=== PATIENT | female | born 1975 | race Two or more races ===

== ENCOUNTER 2024-05-01 07:35 | Day surgery (SDC) | payer BC, SELFPAY ==
[2024-04-28 13:29] VITALS: BMI 31.1
[2024-05-01] VITALS (14 sets, daily range): BP systolic 112–172; BP diastolic 58–116; PULSE 66–98; RESP 14–22; TEMP 36.4–37; O2SAT 95–99; BMI 31.2
[2024-05-01] MEDS: SODIUM CHLORIDE 0.9% 100 ML IV (09:10)
[2024-05-01] MEDS: DiphenhydrAMINE INJ 50 MG/ML VIAL 25 MG IV (09:17)
[2024-05-01] MEDS: fentaNYL CIT INJ 50 mCg/ML AMP 2ML (ASD USE ONLY) IV (09:17)
[2024-05-01] MEDS: ONDANSETRON INJ 2 MG/ML INJ 2 ML 4 MG IV (09:32)
[2024-05-01] MEDS: MEPERIDINE INJ 25 MG/ML VIAL (ASD USE ONLY) IV (09:34)
[2024-05-01] MEDS: MIDAZOLAM INJ 1 MG/ML VIAL 2 ML (ASD USE ONLY) 2 MG IV (09:38)
[2024-05-01 09:41] LABS: Misc Send Out* See Sep Rpt
--- NOTE | 2024-05-01 09:49 | SUR.PHASEII ---
0949 patient arrived to recovery, report received from Lulu ALICEA
--- NOTE | 2024-05-01 10:14 | SUR.PHASEII ---
[facility]
--- NOTE | 2024-05-01 10:49 | SUR.PHASEII ---
1049 Patient meets discharge criteria from recovery, awake and alert, breathing unlabored, vital signs stable, denies pain, drinking water; denies nausea, patient able to dress herself into her clothing, discharge instructions given to patient and patients son, son signed discharge instructions, patient given all her belongings prior to discharge, transported via wheelchair, left in a private vehicle.
== END 2024-05-01 10:49 | disposition home or self-care (01) ==
PROVIDERS: PCP Internal Medicine; Referring Provider Specialist; Visit Provider Specialist
PROC: 0DBE8ZX Excision of Large Intestine, Via Natural or Artificial Opening Endoscopic, Diagnostic (ICD-10-PCS; CPT 45380; principal; 2024-05-01 13:15)
PROC: (CPT 43239; 2024-05-01 13:15)
DX: K64.4 Residual hemorrhoidal skin tags (principal); D62 Acute posthemorrhagic anemia; D64.9 Anemia, unspecified; E55.9 Vitamin D deficiency, unspecified; K57.30 Diverticulosis of large intestine without perforation or abscess without bleeding
CPT/HCPCS: 45378; 81025; 87081; 87205; A4649; J1200; J2175; J2250; J2405; J3010; J7050

== ENCOUNTER → 2024-06-23 | Outpatient (CLI) | payer BC, SELFPAY ==
[2024-06-23 16:14] LABS: Collection Type, Urine Clean Catch
[2024-06-23 16:28] LABS: Basophils % (Auto) 1 % (0-2.5); Eosinophils # (Auto) 0.2 Thou/mm3 (0.0-0.5); Eosinophils % (Auto) 4 % (0-10); Hemoglobin 10.2 g/dL (12.0-16.0); Immature Granulocytes % (Auto) 0 % (0-0); Immature Granulocytes Auto 0.02 Thou/mm3 (0.00-0.00); Lymphocytes # (Auto) 1.7 Thou/mm3 (1.0-4.8); Lymphocytes % (Auto) 29 % (10-50); Mean Corpuscular HGB Conc 35.2 g/dl (31.0-37.0); Mean Corpuscular Hemoglobin 24.6 pg (25.0-35.0); Mean Corpuscular Volume 70 fL (80-100); Monocytes # (Auto) 0.4 Thou/mm3 (0.0-0.8); Monocytes % (Auto) 6 % (0-12); Neutrophils # (Auto) 3.6 Thou/mm3 (1.8-7.7); Neutrophils % (Auto) 61 % (37-80); Nucleated Red Blood Cell % 0 /100 WBC (0); Platelet Count 221 Thou/mm3 (140-440); RDW Standard Deviation 43.7 fL (36.4-46.3); Red Blood Count 4.14 Miln/mm3 (4.00-5.20)
[2024-06-23 16:37] LABS: Amorphous Crystals,Urine Present (Absent); Bilirubin,Urine Negative (Negative); Blood,Urine Negative (Negative); Clarity,Urine Hazy (Clear/Hazy); Color,Urine Lt-Yellow (Lt Yel-Yel); Culture Indicated,Urine Not Indicated; Glucose, Urine Negative (Negative); Ketones,Urine Negative (Negative); Leukocyte Esterase,Urine Negative (Negative); Nitrite,Urine Negative (Negative); PH,Urine 6.5 (5.0-7.0); Protein,Urine Trace (Neg - Trace); RBC,Urine 2 /hpf (0-3); Specific Gravity,Urine 1.027 (1.001-1.035); Squamous Epithelial Cell,Urine 2 /hpf (0-5); Urobilinogen,Urine Negative mg/dL (0.0-1.0); WBC,Urine 2 /hpf (0-5)
[2024-06-23 17:03] LABS: Alanine Aminotransferase 14 U/L (10-49); Aspartate Amino Transferase 16 U/L (0-34); C-Reactive Protein < 0.5 mg/dL (0.0-0.9); Creatinine (Component) 0.7 mg/dL (0.6-1.3); Free T3 3.4 pg/mL (2.3-4.2); Free T4 (Free Thyroxine) 0.96 ng/dL (0.89-1.76); Thyroid Stimulating Hormone 8.53 uIU/mL (0.55-4.78); eGFR > 60 See Note
[2024-06-23 17:53] LABS: Sed Rate (ESR) 3 mm/hr (0-20)
[2024-06-23 20:50] LABS: RA Screen Negative (Negative)
[2024-07-02 15:36] LABS: Cardiolipin Ab (IgA) <2.0 APL-U/mL; Cardiolipin Ab (IgG) <2.0 GPL-U/mL; EBV VCA Ab (IgG) >750.00 U/mL; EBV VCA Ab (IgM) <36.00 U/mL; Sjogren's antibody (SS-A) <1.0 NEG AI (<1.0 NEGATIVE); Sm Antibody <1.0 NEG AI (<1.0 NEGATIVE)
[2024-07-03 06:58] LABS: PTT-LA Screen 38 seconds (< OR = 40); dRVVT Screen 27 seconds (< OR = 45)
[2024-07-03 07:11] LABS: ANA Screen, IFA NEGATIVE (NEGATIVE); Complement Component C3* 138 mg/dL (83-193); Complement Component C4c* 20 mg/dL (15-57); DNA (ds) Antibody* <1 IU/mL; Sjogren's Antibody (SS-B) <1.0 NEG AI (<1.0 NEGATIVE); Thyroglobulin Antibodies* 6 IU/mL (< OR = 1)
[2024-07-03 07:12] LABS: B2-Glycoprotein I Ab IgA <2.0 U/mL; B2-Glycoprotein I Ab IgG <2.0 U/mL; B2-Glycoprotein I Ab IgM <2.0 U/mL; CCP Antibody (IgG)* <16 Units; Cardiolipin Ab (IgM) <2.0 MPL-U/mL; EBV Ab Interpretation PAST; Sm/RNP Antibody <1.0 NEG AI (<1.0 NEGATIVE); Thyroid Peroxidase Antibodies* 73 IU/mL (<9)
== END | disposition home or self-care (01) ==
LOC: COPL 15:46
PROVIDERS: PCP Internal Medicine; Referring Provider Internal Medicine Rheumatology; Visit Provider Internal Medicine Rheumatology
DX: R76.0 Raised antibody titer (principal)
CPT/HCPCS: 36415; 81001; 82565; 84439; 84443; 84450; 84460; 84481; 85025; 85613; 85652; 85730; 86038; 86140; 86146; 86147; 86160; 86200; 86225; 86235; 86376; 86430; 86664; 86665; 86800

== ENCOUNTER 2024-10-10 06:55 | Day surgery (SDC) | payer BC, SELFPAY ==
--- NOTE | 2024-10-08 20:41 | ESHP_ITS ---
RE: ETHAN GEORGES : 1975 DATE OF ADMISSION: 10/10/2024 DATE OF SURGERY: 10/10/2024 HISTORY OF PRESENT ILLNESS: This is a 48-year-old 6, para 5-0-1-5 with a benign-appearing left adnexal mass and a normal CA-125 who presents for removal of left ovarian cyst. ALLERGIES: NO KNOWN DRUG ALLERGIES. MEDICATIONS: None. PAST MEDICAL HISTORY: Gallstones, right oophorectomy at age 19 years for benign cyst, iron deficiency anemia, subclinical hypothyroidism, obesity, urinary stress incontinence, chronic back pain, right Smith palsy, preeclampsia, carpal tunnel syndrome, latent tuberculosis infection. SOCIAL HISTORY: She denies any alcohol, drug use or smoking. FAMILY HISTORY: Denies. OBSTETRIC HISTORY: Five previous full-term normal vaginal deliveries. PAST SURGICAL HISTORY: Laparoscopic cholecystectomy and a laparoscopic right oophorectomy. REVIEW OF SYSTEMS: She denies any chest pain, palpitations, cough, fever, shortness of breath or lower extremity pain. She denies any headache, change in vision or right upper quadrant pain. PHYSICAL EXAMINATION: VITAL SIGNS: Blood pressure is 138/74, heart rate 88, respirations 18, temperature 98.6. HEENT: Oropharynx and sclerae are clear. LUNGS: Clear to auscultation bilaterally. HEART: Regular rate and rhythm. ABDOMEN: Old trocar scars noted. Nontender. EXTREMITIES: Nontender. SKIN: No gross rashes or lesions. NEUROLOGIC: No focal deficits. ASSESSMENT AND PLAN: Left adnexal mass. PLAN: Diagnostic laparoscopy, left oophorectomy, possible laparotomy. Informed consent was obtained. The patient was made aware of the risks, complications, alternatives and benefits of the proposed procedure and she agrees. She is aware of the risk of injury to bowel or bladder, uterus, ureters, adjacent organs, pulmonary embolism, deep vein thrombosis, injury to the vessels, the abdominal wall, hematoma, abscess, wound infection, wound dehiscence, pelvic infection, reoperation to repair injury to internal organs, anesthesia complications, the possibility that a laparotomy needs to be performed to complete the procedure or control bleeding and the possibility that the procedure is not able to be completed due to severe adhesions or technical difficulties. DT: 18:24:25 TT: 20:39:00 Ref: [id number] - TID: [id number]
[2024-10-09 08:34] VITALS: BMI 30.9
[2024-10-09 09:07] LABS: Basophils # (Auto) 0.0 Thou/mm3 (0.0-0.2); Basophils % (Auto) 0 % (0-2.5); Eosinophils # (Auto) 0.1 Thou/mm3 (0.0-0.5); Eosinophils % (Auto) 3 % (0-10); Hematocrit 29.1 % (36.0-46.0); Hemoglobin 10.0 g/dL (12.0-16.0); Immature Granulocytes Auto 0.01 Thou/mm3 (0.00-0.00); Lymphocytes # (Auto) 1.2 Thou/mm3 (1.0-4.8); Lymphocytes % (Auto) 26 % (10-50); Mean Corpuscular HGB Conc 34.4 g/dl (31.0-37.0); Mean Corpuscular Hemoglobin 22.7 pg (25.0-35.0); Mean Corpuscular Volume 66 fL (80-100); Monocytes # (Auto) 0.2 Thou/mm3 (0.0-0.8); Monocytes % (Auto) 5 % (0-12); Neutrophils # (Auto) 3.2 Thou/mm3 (1.8-7.7); Neutrophils % (Auto) 66 % (37-80); Nucleated Red Blood Cell # 0.00 Thou/mm3 (0.00-0.00); Nucleated Red Blood Cell % 0 /100 WBC (0); Platelet Count 227 Thou/mm3 (140-440); RDW Standard Deviation 43.0 fL (36.4-46.3); Red Blood Count 4.41 Miln/mm3 (4.00-5.20); White Blood Count 4.8 Thou/mm3 (3.6-11.0)
[2024-10-09 09:25] LABS: Alanine Aminotransferase 15 U/L (10-49); Albumin, Serum 4.5 gm/dL (3.5-5.0); Albumin/Globulin Ratio 1.9 (1.2-2.2); Alkaline Phosphatase 53 U/L (46-116); Anion Gap 9 (7-16); Aspartate Amino Transferase 15 U/L (0-34); BUN/Creatinine Ratio 17 Ratio (12-20); Beta HCG,Quantitative 1 mIU/mL (<5.0); Bilirubin,Total 0.8 mg/dL (0.3-1.2); Blood Urea Nitrogen 10 mg/dL (9-23); Calcium 9.4 mg/dL (8.3-10.6); Calcium (Corrected) 9.4 mg/dL (8.5-10.1); Carbon Dioxide 25.4 mMol/L (20.0-31.0); Chloride 106 mMol/L (98-107); Creatinine (Component) 0.6 mg/dL (0.6-1.3); Estimated Creatinine Clearance 111.1 mL/min (>60); Globulin 2.4 gm/dL (2.3-3.5); Glucose 98 mg/dL (74-106); Osmolality,Calculated 278 (275-295); Potassium 3.9 mMol/L (3.4-5.1); Sodium 140 mMol/L (136-145); Total Protein 6.9 gm/dL (5.7-8.2); eGFR > 60 See Note
[2024-10-09 09:32] LABS: INR 1.0 (0.9-1.3); Partial Thromboplastin Time 27.9 Seconds (22.0-36.0); Prothrombin Time 10.9 Seconds (9.0-12.2)
[2024-10-09 16:49] LABS: Path Review Blood Smear Sent to Pathologist
[2024-10-10] VITALS (7 sets, daily range): BP systolic 126–144; BP diastolic 72–87; PULSE 66–83; RESP 13–20; TEMP 36.2–36.9; O2SAT 95–100; BMI 31.5
[2024-10-10] MEDS: RINGERS LACTATED 1000 ML 1,000 ML 30 ML IV (08:44)
--- NOTE | 2024-10-10 10:03 | SUR.PHASEI ---
1003 Patient arrived to recovery resting comfortably in [facility], on 8L via oxy mask with an oral airway in place, breathing unlabored, vital signs stable, dressing intact to abdomen; dermabond and to vaginal area; peripad, no bleeding noted, report received from Dr. Simms and Papito ALICEA
[2024-10-10] MEDS: ONDANSETRON INJ 2 MG/ML INJ 2 ML 4 MG IVP (10:40)
--- NOTE | 2024-10-10 11:00 | SUR.PHASEII ---
1100 Patient meets discharge criteria from recovery, awake and alert, breathing unlabored, vital signs stable, denies pain, dressing intact; no bleeding noted, eating ice chips with nausea at a tolerable level, patient assisted with dressing into her clothing by her friend, discharge instructions given to patient and patients friend, friend signed discharge instructions. Patient given all her belongings prior to discharge, transported via wheelchair and left in a private vehicle.
--- NOTE | 2024-10-10 14:26 | ESOP_ITS ---
RE: ETHAN GEORGES : 1975 DATE OF OPERATION: 10/10/2024 PREOPERATIVE DIAGNOSIS: Left ovarian cyst. POSTOPERATIVE DIAGNOSIS: Left ovarian cyst. PROCEDURE PERFORMED: Diagnostic Laparoscopy and left salpingo-oophorectomy. SURGEON: Anmol Chatterjee DO CATTLE STICKER: HILARIO Hastings ANESTHESIA: General. ANESTHESIOLOGIST: Dr. Simms. ESTIMATED BLOOD LOSS: 100 mL. COMPLICATIONS: None. COUNTS: Correct. PATHOLOGY: Left ovary, fallopian tube and left ovarian cyst. FINDINGS: An 11 x 9 x 8.5 cm left ovarian cystic mass containing serous fluid. There was no abnormality of the uterus. The right ovary was not visualized or right fallopian tube. There was no evidence of endometriosis. DESCRIPTION OF PROCEDURE: After proper informed consent was obtained, the patient was made aware of the risks, complications, alternatives, and benefits of the proposed procedure. She was taken to the operating room where she underwent induction of general anesthesia. She was placed in the dorsal lithotomy position and prepped and draped in the usual sterile fashion. A timeout was performed. An acorn manipulator was placed in the uterus and attention was then turned to the abdomen where the physician regloved and a 5-mm incision was made in the umbilical fold with tenting up to the abdomen. A Veress needle was inserted. Saline confirmed intraabdominal placement. An artificial pneumoperitoneum was created to 12 mmHg. The Veress needle was then removed. The 5 mm trocar was inserted using the laparoscope connected to the video camera. The pelvic organs were visualized and the above findings were noted. A second incision was made in the midline 2 cm above the symphysis pubis. Through this 10 mm incision, a 10-mm trocar was inserted under direct visualization of the laparoscope. Using the blunt probe, the above findings were noted and left lower quadrant incision was made. Through this 5 mm incision, a 5-mm trocar was inserted under direct visualization of the laparoscope. Using the Raheem grasper as well as the 1136 Harmonic scalpel, the left salpingo-oophorectomy was performed. The infundibulopelvic ligament was grasped with the harmonic scalpel and transected and hemostasis was achieved. The utero-ovarian ligament was also grasped, transected and hemostasis was achieved. The specimen was deflated in the Endopouch and the serous fluid was removed. The cyst was removed through the Endopouch through the suprapubic incision and specimen sent to Pathology. There was no bleeding at the end of the procedure. First of all, the suprapubic incision was closed with 4-0 Vicryl and a David-Desirae needle and then the incisions were infiltrated with Marcaine plain 3 mL each and then covered with 4-0 Monocryl and Dermabond. Attention was then turned to the vagina where the uterine manipulator was removed. There was no bleeding at the end of the procedure. All instruments were removed from the vagina. She was reversed from general anesthesia in the supine position and transferred to the recovery room in stable condition. She tolerated the procedure well. Counts were correct. I discussed with the patient's family, the nature of her condition, intraoperative findings and expectation for recovery. All questions answered. DT: 09:56:50 TT: 14:24:00 Ref: [id number] - TID: [id number] [facility] SYSTEM[facility]idel[facility]
== END 2024-10-10 11:00 | disposition home or self-care (01) ==
PROVIDERS: PCP Internal Medicine; Referring Provider Specialist; Visit Provider Specialist
PROC: (CPT 58720; principal; 2024-10-10 08:45)
DX: N83.202 Unspecified ovarian cyst, left side (principal); D50.9 Iron deficiency anemia, unspecified
CPT/HCPCS: 58661; 36415; 80053; 84702; 85025; 85610; 85730; 86850; 86900; 86901; A4217; A4649; J0131; J0690; J1100; J1885; J2250; J2405; J2704; J3010; J3490; J7120; A9270